=== PATIENT | female | born 1990 | race Caucasian/White ===

== ENCOUNTER 2018-04-07 20:04 | Emergency (ER) | payer SELFPAY ==
[~2018-04-07] VITALS: Ht 160 cm; Wt 63.5 kg
[2018-04-07 20:12] VITALS: BP 111/67
--- NOTE | 2018-04-07 20:18 | NUR ---
PT. AMBULATED TO [facility]
--- NOTE | 2018-04-07 21:00 | NUR ---
PT AMBULATED TO BED
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
[2018-04-07] MEDS ORDERED: NACL 0.9% 1,000 ML IV ONE (21:37)
[2018-04-07] MEDS ORDERED: diphenhydrAMINE 50 MG/ML VIAL IVP ONE (21:40)
[2018-04-07] MEDS ORDERED: PROCHLORPERAZINE 10 MG/2 ML VIAL IVP ONE (21:40)
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
[2018-04-07 22:37] VITALS: BP 100/62
--- NOTE | 2018-04-07 22:39 | NUR ---
Patient discharged with v/s stable. Written and verbal after care instructions given and explained. Patient alert, oriented and verbalized understanding of instructions. Ambulatory with steady gait. All questions addressed prior to discharge. ID band removed. Patient advised to follow up with PMD. Rx of MOTRIN 800MG, CIPRO 500MG given. Patient educated on indication of medication including possible reaction and side effects. Opportunity to ask questions provided and answered.
== END 2018-04-07 22:39 | disposition home or self-care (01) ==
LOC: MED 20:04
DX: R51 Headache (principal); R11.2 Nausea with vomiting, unspecified; N12 Tubulo-interstitial nephritis, not specified as acute or chronic; F17.210 Nicotine dependence, cigarettes, uncomplicated
CPT/HCPCS: 70450; 81002; 81025; 96361; 96374; 96375; 99284; J0780; J1200